=== PATIENT | female | born 1945 | race Caucasian/White ===

== ENCOUNTER 2016-03-24 15:42 | Observation (INO) | payer OTHER ==
[~2016-03-24] VITALS: Ht 162.6 cm; Wt 66.2 kg
[~2016-03-24 15:42] MED LIST: ASPIR 8181 M1 PO; BONINE25 MG PO; DIAZEPAM2 MG PO; LIPITOR10 MG PO; VITAMIN D1000 UNIT PO
[2016-03-24 16:20] LABS: HEMATOCRIT 39.8 % (36.0-46.0); MCH 32.9 PG (29.0-34.0); MCHC 34.2 G/DL (30.0-36.0); MCV 96.4 FL (83-99); MEAN PLAT.VOLUME 10.1 uM^3 (9.5-12.4); PLATELET COUNT 282 K/uL (156-360); RBC DIS.WIDTH-CV 12.6 % (11.8-14.6); RED BLOOD COUNT 4.13 M/uL (3.80-5.20); WHITE BLOOD COUNT 5.4 K/uL (4.1-10.2)
[2016-03-24 16:29] LABS: CHLORIDE 107 mEq/L (99-109); POTASSIUM 4.4 mEq/L (3.7-5.4); SODIUM 142 mEq/L (136-147)
[2016-03-24 16:31] LABS: GLUCOSE 94 mg/dL (70-99)
[2016-03-24 16:32] LABS: ANION GAP 9 MEQ/L (2-14)
[2016-03-24 16:35] LABS: GFR ESTIMATE (CALCULATED) > 59 mL/min/
[2016-03-24 16:36] LABS: UREA NITROGEN (BUN) 15 mg/dL (9-23)
[2016-03-24 17:43] LABS: TROP-I INTERPRETATION NEGATIVE; TROPONIN-I < 0.01 ng/mL (0.0-0.30)
[2016-03-24 19:48] LABS: ADD MIUA? NO; BILIRUBIN NEGATIVE; BLOOD NEGATIVE; COLOR YELLOW ((YELLOW)); GLUCOSE (STRIP) NEGATIVE; KETONES TRACE; LEUKOCYTES NEGATIVE; NITRITE NEGATIVE; PROTEIN (STRIP) NEGATIVE; SPECIFIC GRAVITY 1.023 (1.000-1.030); UROBILINOGEN 0.2 MG/DL (0.2-1.0)
[2016-03-24 23:41] VITALS: BP 120/88
[2016-03-25 04:15] VITALS: BP 137/62
[2016-03-25 07:19] LABS: HDL CHOLESTEROL 49 MG/DL (Desirable>=50); LDL CHOLESTEROL 97 mg/dL (Desirable<100); NON-HDL CHOLESTEROL 115 mg/dL (Desirable<160); TOTAL CHOLESTEROL 164 mg/dL (Desirable<200); TRIGLYCERIDES 91 MG/DL (Normal: <150)
[2016-03-25 08:15] VITALS: BP 132/64
[2016-03-25 11:41] LABS: TREPONEMA ANTIBODY NEGATIVE (NEGATIVE)
[2016-03-25 12:15] VITALS: BP 120/57
[2016-03-25] MEDS ORDERED: LIPITOR10 MG PO (16:32)
[2016-03-25] MEDS ORDERED: ASPIR-LOW81 MG PO (16:32)
[2016-03-25 16:54] VITALS: BP 121/58
== END 2016-03-25 19:08 | disposition home or self-care (01) ==
LOC: EME 15:42 → EDOF 21:05 → 5WEST 22:33
PROVIDERS: Physician Assistant; Physician Assistant Medical
DX: G45.4 Transient global amnesia (principal); R07.89 Other chest pain; R01.1 Cardiac murmur, unspecified; R51 Headache; Z86.73 Personal history of transient ischemic attack (TIA), and cerebral infarction without residual deficits; E78.2 Mixed hyperlipidemia; Z85.41 Personal history of malignant neoplasm of cervix uteri; G89.29 Other chronic pain; E78.5 Hyperlipidemia, unspecified; Z82.49 Family history of ischemic heart disease and other diseases of the circulatory system; Z81.8 Family history of other mental and behavioral disorders; Z82.0 Family history of epilepsy and other diseases of the nervous system; Z81.1 Family history of alcohol abuse and dependence
CPT/HCPCS: 70450; 70551; 71020; 80048; 80061; 81003; 82607; 82746; 84443; 84484; 85027; 86780; 93005; 93880; 99281; 99285; G0378